=== PATIENT | male | born 1960 | race Caucasian/White ===

== ENCOUNTER → 2016-07-12 | Outpatient (CLI) | payer OTHER ==
[~2016-07-12] MED LIST: BIOTIN2500 MCG PO; FENOFIBRATE160 MG PO; FISH OIL 1,0001 EACH PO; GLUCOPHAGE1000 MG PO; INVOKANA100 MG PO; JANUVIA100 MG PO; LISINOPRIL5 MG PO; LORTAB 7.5-3251 EACH PO; METHOCARBAMOL500 MG PO; MULTIVITAMINS1 EAC1 PO; NEURONTIN 300300 MG PO; PANTOPRAZOLE SO40 MG PO; PLAVIX 75 MG TA75 MG PO; PLETAL 100 MG100 MG PO; PRAVASTATIN SOD20 MG PO; SUPER B-50 COM1 EACH PO
== END ==
LOC: US 10:00
DX: I82.432 Acute embolism and thrombosis of left popliteal vein (principal); Z88.2 Allergy status to sulfonamides; Z88.0 Allergy status to penicillin
CPT/HCPCS: 36415; 85379; 93971